=== PATIENT | female | born 1930 | race Caucasian/White ===

== ENCOUNTER 2016-12-23 11:27 | Inpatient (IN) | payer MEDICARE ==
--- NOTE | ~2016-12-23 | HP ---
History And Physical [address] [place]. [address] NAME: MAGALYS العلي : 34 STATUS : ADM IN PAT#: [id number] AGE: 86 ADM/REG DATE : 12/23/16 MR#: [id number] REPORT SERV DATE: 12/23/16 DICTATED BY: SETH SIU DATE: 12/23/16 REPORT STATUS : Draft TRANSCRIBED BY: MODL DATE: 12/23/16 DATE OF ADMISSION: 12/23/2016 ADMISSION REASON: Ventricular tachycardia. PRIMARY SENIOR TERADATA DEVELOPER: Tramaine Macedo M.D. LONGWALL HEADGATE OPERATOR: Yehuda Landry M.D. HISTORY OF PRESENT ILLNESS: Ms. العلي is an 86-year-old female with a history of known CAD status post redo CABG and surgical ventricular repair in 1998, who was called in to the ER from the office after device interrogation revealed multiple episodes of recurrent ventricular tachycardia. She had been feeling poorly since last night with periods of dizziness/lightheadedness. She has also been having some periods of palpitations. She has been frail with a decreased appetite and the family notes that she has been more weak lately. She has been having significant right hip pain after right hip fracture and surgical repair. She has been on scheduled Ultram due to her pain. In the setting of her limited functional capacity, she has had no symptoms of angina or shortness of breath. She denies orthopnea or edema. She has been taking all of her other current medications as prescribed. She does have a known history of ventricular tachycardia and has a Bi-V ICD in situ. She has a history of amiodarone with VT breakthrough and is now managed on chronic sotalol. REVIEW OF SYSTEMS: Pertinent positives and negatives as outlined above, all others negative. PAST MEDICAL HISTORY: 1. CAD, status post redo CABG in 1998. 2. Ischemic cardiomyopathy, EF 25%, status post surgical ventricular repair. 3. Chronic systolic heart failure. 4. Bi-V ICD in situ. 5. 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 6. Paroxysmal atrial fibrillation. 7. Chronic age/weight adjusted Eliquis. 8. Hypertension. 9. Hyperlipidemia. 10.Hypothyroidism. 11.Frailty. CURRENT HOME MEDICATIONS: 1. Sotalol 120 mg b.i.d. 2. Accupril 10 mg daily. 3. Lasix 80 mg daily. 4. Aldactone 25 mg daily. 5. Antivert as directed. 6. Pravastatin 10 mg at bedtime. History And Physical [address] [place]. [address] NAME: MAGALYS العلي : 32 STATUS : ADM IN PAT#: [id number] AGE: 86 ADM/REG DATE : 12/23/16 MR#: [id number] REPORT SERV DATE: 12/23/16 DICTATED BY: SETH SIU DATE: 12/23/16 REPORT STATUS : Draft TRANSCRIBED BY: BEATRIZ DATE: 12/23/16 7. CoQ10 supplementation. 8. Eliquis 2.5 mg twice daily. 9. Imdur 30 mg daily. 10.Ultram 50 mg three times daily p.r.n. 11.Vitamin D supplementation. ALLERGIES: NO KNOWN DRUG ALLERGIES. INTOLERANT TO AMIODARONE WITH HISTORY OF VT BREAKTHROUGH. SOCIAL HISTORY: The patient lives at home with family support. She does not consume alcohol or use illegal drugs. FAMILY HISTORY: Significant for CAD. PHYSICAL EXAMINATION: VITAL SIGNS: Temperature is afebrile, pulse is 70, respirations 16, blood pressure 136/67. GENERAL: A well-developed and frail/thin appearing female who is currently in no acute distress. HEENT: Sclerae anicteric, mucous membranes moist and without lesions. NECK: No jugular venous distention. No hepatojugular reflux, carotid upstrokes 2+ and symmetric, there are no carotid or subclavian bruit. LUNGS: Mildly decreased breath sounds throughout with faint basilar crackles. CARDIOVASCULAR: Regular with soft S1 and normal S2. No audible S3. There is a 1/6 holosystolic murmur heard at the apex without radiation. There is a soft parasternal lift. The PMI is displaced laterally 2 cm and is nonsustained. ABDOMEN: Thin, soft, nontender. Bowel sounds are positive, normoactive. There is no rebound or guarding. PULSES: 1 to 2+ and symmetric throughout. EXTREMITIES: Warm and without edema. SKIN: No clubbing or cyanosis, no rashes or lesions. ACCESSORY DATA: EKG on arrival shows AV sequential paced rhythm. Chest x-ray showed cardiomegaly with no acute pulmonary abnormality. Labs with a troponin of 0.03. BNP 400. Creatinine 0.75. Otherwise, unremarkable electrolytes including potassium slightly low at 3.6. Device interrogation confirmed 7 episodes of ventricular tachycardia, 6 terminated by antitachycardia pacing and 1 with ICD shock. IMPRESSION: 1. Ventricular tachycardia. 2. Coronary artery disease, status post redo CABG. 3. Ischemic cardiomyopathy, EF 25%. 4. History of surgical ventricular repair. 5. Chronic systolic heart failure. 6. History of VT, on chronic sotalol, amiodarone failure. 7. Paroxysmal atrial fibrillation. History And Physical [address] [facility] [place]. [address] NAME: MAGALYS العلي : 32 STATUS : ADM IN MERGED WITH [facility]#: [id number] AGE: 86 ADM/REG DATE : 12/23/16 MR#: [id number] REPORT SERV DATE: 12/23/16 DICTATED BY: SETH SIU. DATE: 12/23/16 REPORT STATUS : Draft TRANSCRIBED BY: BEATRIZ DATE: 12/23/16 8. Chronic anticoagulation. 9. Hypertension. 10.Hyperlipidemia. 11.Frailty. PLAN: Ms. العلي has been feeling poorly with weakness and fatigue and a declining functional capacity. Some of this is due to right hip pain. She appears quite thin and frail today. She had 7 episodes of VT, 6 terminated by ATP and 1 by ICD shock. She will be admitted for inpatient evaluation. We will add carvedilol 6.25 mg twice daily to her current sotalol dose. Decrease BRUNILDA inhibitor to prevent hypotension. Replete potassium and magnesium and continue electrolyte protocol. She will have an echocardiogram to assess cardiac dimensions and function. Discontinue Ultram and transition this to Percocet as needed for pain. We will have physical therapy evaluate her due to her right hip pain and to assess possible post discharge needs. Questionable need for stress test versus cardiac catheterization. We will trend troponins and observe her clinical course for further management. AEA/BEATRIZ Seth Siu M.D. / [id number] CC: Seth Siu M.D. Matheus Price M.D.
--- NOTE | ~2016-12-23 | DS ---
Discharge Summary [facility] [address] [place]. [address] NAME: MAGALYS MARCOS : 34 STATUS : DIS IN PAT#: [id number] AGE: 86 ADM/REG DATE : 12/23/16 MR#: [id number] REPORT SERV DATE: 01/06/17 DICTATED BY: SETH SIU DATE: 01/05/17 REPORT STATUS : Draft TRANSCRIBED BY: BEATRIZ DATE: 01/05/17 Data Collection from hospitalization DISCHARGE DIAGNOSES: 1. ICD discharge. 2. History of coronary artery bypass grafting. 3. Ventricular tachycardia. 4. Right hip arthritic pain. 5. History of biventricular ICD placement. 6. Hypertension. 7. Hyperlipidemia. 8. Hypothyroidism. 9. Paroxysmal atrial fibrillation. 10.Coronary artery disease. 11.Ischemic cardiomyopathy. 12.Chronic systolic heart failure. CONSULTATIONS: None. PROCEDURES PERFORMED: Cardiac catheterization, 12/26/2016. DISCHARGE MEDICATIONS: Tylenol 650 mg every eight hours as needed, Eliquis 2.5 mg twice a day, Coreg 3.125 mg twice a day, vitamin D3 1000 units daily, CoQ10 one tablet at bedtime, Lasix 80 mg daily, Imdur 30 mg daily, Synthroid 50 mcg daily, Antivert 12.5 mg at bedtime as needed, Nitrostat 0.4 mg sublingually as needed, Pravachol 10 mg at bedtime, Accupril 10 mg at bedtime, sotalol 160 mg every 12 hours, Aldactone 25 mg daily. CONDITION AT DISCHARGE: Stable. DISPOSITION: The patient was discharged home on a low-sodium, low-cholesterol diet with activities as instructed. She would follow up with Dr. Tramaine Macedo, 01/09/2017. She would follow up with her pain management physician as instructed. HOSPITAL COURSE: This is an 86-year-old female, who has coronary artery disease and is status post redo coronary artery bypass grafting and surgical ventricular repair in 1998, who was called into the emergency room from the office after device interrogation revealed multiple episodes of recurrent ventricular tachycardia. She had been feeling poorly since the night prior to this admission with periods of dizziness and lightheadedness. She had also had some periods of palpitation. She had been frail and had a decreased appetite. Her family had noticed that she had been more weak lately. She has had significant right hip pain after a right hip fracture and surgical repair. She had been on scheduled Ultram due to her pain. In the setting of her limited functional capacity, she had had no symptoms of angina or shortness of breath. She denied orthopnea or edema. She had been taking all of her current medications as prescribed. She does have a history of ventricular tachycardia and has a biventricular ICD in situ. She has a history of amiodarone with ventricular tachycardia breakthrough and is now managed on chronic sotalol. She was admitted to the Discharge [address] [address] NAME: MAGALYS MARCOS : 34 STATUS : DIS IN PAT#: [id number] AGE: 86 ADM/REG DATE : 12/23/16 MR#: [id number] REPORT SERV DATE: 01/06/17 DICTATED BY: SETH SIU DATE: 01/05/17 REPORT STATUS : Draft TRANSCRIBED BY: BEATRIZ DATE: 01/05/17 hospital at this time for further evaluation and treatment. Upon admission, device interrogation confirmed seven episodes of ventricular tachycardia, six were terminated by antitachycardia pacing and one with ICD shock. She has ischemic cardiomyopathy with an ejection fraction of 25%. Carvedilol was added to her regimen with the current sotalol dose. BRUNILDA inhibitor was reduced to prevent hypotension. Potassium and magnesium supplementation would be given and we would continue electrolyte protocol. Echocardiogram was requested to assess cardiac dimensions and function. Ultram was discontinued and we would transition this to Percocet as needed for pain. We would trend troponin, questioned the need for stress test versus cardiac catheterization. Following day, she had no chest pain or shortness of breath. She had no defibrillator firings. Troponin was 0.04. Echocardiogram was performed. On the , she had ongoing right hip pain. She had no shortness of breath or chest pain. She was in a normal sinus rhythm. She had decreased breath sounds. It was felt that she would need to undergo a cardiac catheterization to evaluate new ischemic substrate. The next day, she was taken to the cardiac quality assurance/r&d lab technician where she underwent the above-mentioned procedure. She tolerated this well and there were no complications. This was performed by Dr. Carlitos Nix. Discharge planning was performed. On 12/27/2016, she was evaluated by Physical Therapy. Sotalol was increased. Coreg was added. Discharge instructions were given. Due to her improved and stable condition, she was discharged home to be followed by home health care with the above- stated instructions. Information collected by: Cha Tubbs I submit the above information as my discharge summary. SOMMER/BEATRIZ Seth Siu M.D. / [id number] CC: Franny Garcia M.D.
[~2016-12-23 11:27] MED LIST: ACCU10 PO; ACCU20 PO; ASAB PO; BETAP120 PO; COQ-10200 MG PO; CORDARONE PO; COREG12 PO; ELIQUIS 2.5 MG2.5 MG PO; IMDUR30 PO; L80 PO; MCZ125 PO; NITROSTAT0.4 MG SL; NORCO1 TA2 PO; PRAV10 PO; SPIRO25 PO; SYN.05 PO; TYLENOL ARTH650 MG PO; ULTRAM50 PO; VITAMIN D31000 UNIT PO
[2016-12-23 11:41] LABS: BASOPHILS 0.2 %; BASOPHILS ABSOLUTE 0.02 10/3/uL (0.0-0.16); EOSINOPHILS 2.1 %; EOSINOPHILS ABSOLUTE 0.24 10/3/uL (0.0-0.53); HEMATOCRIT 37.8 % (36.0-48.0); IMMATURE GRANULOCYTES 0.3 %; IMMATURE GRANULOCYTES ABSOLUTE 0.04 10/3/uL (0.0-0.11); LYMPHOCYTES 14.1 %; LYMPHOCYTES ABSOLUTE 1.62 10/3/uL (0.67-4.30); MEAN CORPUS HGB CONC 34.4 g/dL (32.0-36.0); MEAN CORPUSCULAR VOLUME 87.3 fL (80-100); MEAN PLATELET VOLUME 10.4 fL (9.2-13.0); MONOCYTES 7.8 %; NEUTROPHILS 75.5 %; NEUTROPHILS ABSOLUTE 8.71 10/3/uL (2.02-8.40); PLATELET COUNT 365 10/3/uL (150-400); RBC DISTRIBUTION WIDTH 15.1 % (12.0-16.0); RED CELL COUNT 4.33 10/6/uL (4.0-5.6)
[2016-12-23 11:42] LABS: ER CBC TAT 0 Hrs 07 Mins; MANUAL DIFF NO %; WHITE BLOOD CELLS 11.5 10/3/uL (4.5-10.5)
[2016-12-23 11:49] LABS: INTERNATIONAL NORMAL RATI 1.3 UNITS (-); PARTIAL THROMBO TIME 31.3 SEC (22.5-37.2); PROTIME (NOT ORD) 15.8 SEC (12.0-14.5)
[2016-12-23 11:57] LABS: CALCIUM, SERUM 9.7 MG/DL (8.5-10.4); CHEST PAIN PROFILE TAT 0 Hrs 22 Mins; CHLORIDE, SERUM 101 MMOL/L (96-112); CO2 (CARBON DIOXIDE) 29 MMOL/L (24-34); CREATININE 0.75 MG/DL (0.55-1.02); GFR AFRICAN AMERICAN 85 ML/MIN (>=60); GFR NON AFRICAN AMERICAN 73 ML/MIN (>=60); GLUCOSE, SERUM 96 MG/DL (60-99); POTASSIUM, SERUM 3.6 MMOL/L (3.5-5.3); SODIUM, SERUM 139 MMOL/L (135-148); TROPONIN I 0.03 NG/ML (<0.05)
[2016-12-23 12:01] LABS: BUN (BLOOD UREA NITROGEN) 14 MG/DL (6-23)
[2016-12-23] MEDS ORDERED: T PO (15:42)
[2016-12-24 04:30] LABS: BASOPHILS 0.2 %; BASOPHILS ABSOLUTE 0.02 10/3/uL (0.0-0.16); EOSINOPHILS 2.6 %; EOSINOPHILS ABSOLUTE 0.23 10/3/uL (0.0-0.53); HEMATOCRIT 37.2 % (36.0-48.0); HEMOGLOBIN 13.1 g/dL (12.0-16.0); IMMATURE GRANULOCYTES 0.2 %; IMMATURE GRANULOCYTES ABSOLUTE 0.02 10/3/uL (0.0-0.11); LYMPHOCYTES 20.5 %; LYMPHOCYTES ABSOLUTE 1.81 10/3/uL (0.67-4.30); MEAN CORPUS HGB CONC 35.2 g/dL (32.0-36.0); MEAN CORPUSCULAR HEMOGLOB 30.9 pg (26.0-34.0); MEAN CORPUSCULAR VOLUME 87.7 fL (80-100); NEUTROPHILS 67.5 %; NEUTROPHILS ABSOLUTE 5.96 10/3/uL (2.02-8.40); PLATELET COUNT 309 10/3/uL (150-400); RBC DISTRIBUTION WIDTH 14.8 % (12.0-16.0); RED CELL COUNT 4.24 10/6/uL (4.0-5.6); WHITE BLOOD CELLS 8.8 10/3/uL (4.5-10.5)
[2016-12-24 04:31] LABS: MANUAL DIFF NO %
[2016-12-24 04:46] LABS: A/G RATIO 0.9 (0.7-1.9); ALBUMIN 3.2 G/DL (3.5-5.0); ALKALINE PHOSPHATASE 99 U/L (45-117); BUN (BLOOD UREA NITROGEN) 16 MG/DL (6-23); CALCIUM, SERUM 9.4 MG/DL (8.5-10.4); CHLORIDE, SERUM 103 MMOL/L (96-112); CO2 (CARBON DIOXIDE) 27 MMOL/L (24-34); CREATININE 0.79 MG/DL (0.55-1.02); GFR AFRICAN AMERICAN 80 ML/MIN (>=60); GFR NON AFRICAN AMERICAN 69 ML/MIN (>=60); GLOBULIN 3.7 G/DL (2.5-4.1); GLUCOSE, SERUM 94 MG/DL (60-99); POTASSIUM, SERUM 4.1 MMOL/L (3.5-5.3); SGOT(AST) 15 U/L (5-40); SGPT(ALT) 20 U/L (5-65); SODIUM, SERUM 139 MMOL/L (135-148); TOTAL BILIRUBIN 0.8 MG/DL (0-1.2); TOTAL PROTEIN 6.9 G/DL (6.0-8.5)
[2016-12-25 06:31] LABS: BASOPHILS 0.2 %; BASOPHILS ABSOLUTE 0.02 10/3/uL (0.0-0.16); EOSINOPHILS 2.8 %; EOSINOPHILS ABSOLUTE 0.29 10/3/uL (0.0-0.53); HEMATOCRIT 36.3 % (36.0-48.0); HEMOGLOBIN 12.8 g/dL (12.0-16.0); IMMATURE GRANULOCYTES 0.1 %; IMMATURE GRANULOCYTES ABSOLUTE 0.01 10/3/uL (0.0-0.11); LYMPHOCYTES 16.4 %; LYMPHOCYTES ABSOLUTE 1.71 10/3/uL (0.67-4.30); MEAN CORPUS HGB CONC 35.3 g/dL (32.0-36.0); MEAN CORPUSCULAR HEMOGLOB 30.2 pg (26.0-34.0); MEAN CORPUSCULAR VOLUME 85.6 fL (80-100); MEAN PLATELET VOLUME 10.6 fL (9.2-13.0); MONOCYTES 9.1 %; MONOCYTES ABSOLUTE 0.95 10/3/uL (0.21-1.20); NEUTROPHILS 71.4 %; NEUTROPHILS ABSOLUTE 7.45 10/3/uL (2.02-8.40); PLATELET COUNT 321 10/3/uL (150-400); RBC DISTRIBUTION WIDTH 14.8 % (12.0-16.0); RED CELL COUNT 4.24 10/6/uL (4.0-5.6); WHITE BLOOD CELLS 10.4 10/3/uL (4.5-10.5)
[2016-12-25 06:32] LABS: BUN (BLOOD UREA NITROGEN) 19 MG/DL (6-23); CALCIUM, SERUM 9.5 MG/DL (8.5-10.4); CHLORIDE, SERUM 101 MMOL/L (96-112); CREATININE 0.92 MG/DL (0.55-1.02); GFR AFRICAN AMERICAN 66 ML/MIN (>=60); GFR NON AFRICAN AMERICAN 57 ML/MIN (>=60); GLUCOSE, SERUM 91 MG/DL (60-99); MANUAL DIFF NO %; SODIUM, SERUM 136 MMOL/L (135-148)
[2016-12-25 06:33] LABS: CO2 (CARBON DIOXIDE) 22 MMOL/L (24-34); POTASSIUM, SERUM 4.8 MMOL/L (3.5-5.3)
[2016-12-26 06:15] LABS: BUN (BLOOD UREA NITROGEN) 19 MG/DL (6-23); CALCIUM, SERUM 9.6 MG/DL (8.5-10.4); CHLORIDE, SERUM 99 MMOL/L (96-112); CHOL/HDL RATIO(NOT ORDER) 2.2 (0-5); CHOLESTEROL 111 MG/DL (< 200); CREATININE 0.85 MG/DL (0.55-1.02); GFR AFRICAN AMERICAN 73 ML/MIN (>=60); GFR NON AFRICAN AMERICAN 63 ML/MIN (>=60); GLUCOSE, SERUM 96 MG/DL (60-99); HDL CHOLESTEROL 50 MG/DL (> 49); LDL CHOLESTEROL 43 MG/DL (< 130); NON-HDL CHOLESTEROL 61 MG/DL (< 160); POTASSIUM, SERUM 3.9 MMOL/L (3.5-5.3); SODIUM, SERUM 138 MMOL/L (135-148); TRIGLYCERIDE 93 MG/DL (< 150)
[2016-12-26 06:16] LABS: CO2 (CARBON DIOXIDE) 27 MMOL/L (24-34); INTERNATIONAL NORMAL RATI 1.3 UNITS (-); PROTIME (NOT ORD) 15.7 SEC (12.0-14.5)
[2016-12-26 06:23] LABS: BASOPHILS 0.2 %; BASOPHILS ABSOLUTE 0.02 10/3/uL (0.0-0.16); EOSINOPHILS 2.4 %; EOSINOPHILS ABSOLUTE 0.23 10/3/uL (0.0-0.53); HEMATOCRIT 38.1 % (36.0-48.0); HEMOGLOBIN 13.2 g/dL (12.0-16.0); IMMATURE GRANULOCYTES 0.2 %; IMMATURE GRANULOCYTES ABSOLUTE 0.02 10/3/uL (0.0-0.11); LYMPHOCYTES 15.1 %; LYMPHOCYTES ABSOLUTE 1.43 10/3/uL (0.67-4.30); MEAN CORPUS HGB CONC 34.6 g/dL (32.0-36.0); MEAN CORPUSCULAR HEMOGLOB 29.9 pg (26.0-34.0); MEAN CORPUSCULAR VOLUME 86.4 fL (80-100); MONOCYTES 9.6 %; MONOCYTES ABSOLUTE 0.91 10/3/uL (0.21-1.20); NEUTROPHILS 72.5 %; NEUTROPHILS ABSOLUTE 6.89 10/3/uL (2.02-8.40); PLATELET COUNT 343 10/3/uL (150-400); RBC DISTRIBUTION WIDTH 14.6 % (12.0-16.0); RED CELL COUNT 4.41 10/6/uL (4.0-5.6); WHITE BLOOD CELLS 9.5 10/3/uL (4.5-10.5)
[2016-12-26 06:25] LABS: MANUAL DIFF NO %
[2016-12-27 05:52] LABS: BASOPHILS 0.1 %; BASOPHILS ABSOLUTE 0.01 10/3/uL (0.0-0.16); EOSINOPHILS 2.6 %; HEMATOCRIT 34.9 % (36.0-48.0); HEMOGLOBIN 12.1 g/dL (12.0-16.0); IMMATURE GRANULOCYTES 0.3 %; IMMATURE GRANULOCYTES ABSOLUTE 0.02 10/3/uL (0.0-0.11); LYMPHOCYTES 18.9 %; LYMPHOCYTES ABSOLUTE 1.46 10/3/uL (0.67-4.30); MEAN CORPUS HGB CONC 34.7 g/dL (32.0-36.0); MEAN CORPUSCULAR HEMOGLOB 30.1 pg (26.0-34.0); MEAN CORPUSCULAR VOLUME 86.8 fL (80-100); MEAN PLATELET VOLUME 10.2 fL (9.2-13.0); MONOCYTES 10.2 %; MONOCYTES ABSOLUTE 0.79 10/3/uL (0.21-1.20); NEUTROPHILS 67.9 %; NEUTROPHILS ABSOLUTE 5.25 10/3/uL (2.02-8.40); PLATELET COUNT 301 10/3/uL (150-400); RBC DISTRIBUTION WIDTH 14.9 % (12.0-16.0); RED CELL COUNT 4.02 10/6/uL (4.0-5.6); WHITE BLOOD CELLS 7.7 10/3/uL (4.5-10.5)
[2016-12-27 05:53] LABS: MANUAL DIFF NO %
[2016-12-27 05:54] LABS: BUN (BLOOD UREA NITROGEN) 17 MG/DL (6-23); CHLORIDE, SERUM 105 MMOL/L (96-112); CO2 (CARBON DIOXIDE) 28 MMOL/L (24-34); GFR AFRICAN AMERICAN 78 ML/MIN (>=60); GFR NON AFRICAN AMERICAN 68 ML/MIN (>=60); GLUCOSE, SERUM 88 MG/DL (60-99); POTASSIUM, SERUM 4.4 MMOL/L (3.5-5.3); SODIUM, SERUM 140 MMOL/L (135-148)
[2016-12-27] MEDS ORDERED: SORINE160 MG PO (10:57)
[2016-12-27] MEDS ORDERED: COREG3 PO (11:21)
== END 2016-12-27 14:30 | disposition home health service (06) | DRG 287 ==
LOC: ER 11:27 → 5NO 13:47
PROVIDERS: Emergency Medicine; Internal Medicine Cardiovascular Disease
PROC: B2131ZZ Fluoroscopy of Multiple Coronary Artery Bypass Grafts using Low Osmolar Contrast (ICD-10-PCS; 2016-12-23)
PROC: B2181ZZ Fluoroscopy of Left Internal Mammary Bypass Graft using Low Osmolar Contrast (ICD-10-PCS; 2016-12-23)
PROC: 4A023N7 Measurement of Cardiac Sampling and Pressure, Left Heart, Percutaneous Approach (ICD-10-PCS; principal; 2016-12-26)
PROC: B2111ZZ Fluoroscopy of Multiple Coronary Arteries using Low Osmolar Contrast (ICD-10-PCS; 2016-12-26)
PROC: B2151ZZ Fluoroscopy of Left Heart using Low Osmolar Contrast (ICD-10-PCS; 2016-12-26)
DX: I47.2 Ventricular tachycardia (principal); I50.22 Chronic systolic (congestive) heart failure; Z95.1 Presence of aortocoronary bypass graft; I25.10 Atherosclerotic heart disease of native coronary artery without angina pectoris; I48.0 Paroxysmal atrial fibrillation; Z79.01 Long term (current) use of anticoagulants; E78.5 Hyperlipidemia, unspecified
CPT/HCPCS: 71010; 73502-RT; 80048; 80053; 80061; 83735; 83880; 84484; 85025; 85610; 85730; 93005; 93459; 96374; 97161-GP; 99152; 99153; 99285; A9270-GY; C1769; C8929; G8978-CJ-GP; G8979-CJ-GP; G8980-CJ-GP; J1940; J2250; J3010; Q9957; Q9967